=== PATIENT | female | born 1985 | race Two or more races ===

== ENCOUNTER 2024-04-25 20:00 | Emergency (ER) | payer OTHER ==
[2024-04-25 20:31] VITALS: BP 127/83; PULSE 93; RESP 18; TEMP 98.4; BMI 22.3
[2024-04-25] MEDS ORDERED: ACETAMINOPHEN WITH CODEINE 300MG/30MG TABLET ONE (21:30)
[2024-04-25] MEDS: ACETAMINOPHEN WITH CODEINE 300MG/30MG TABLET PO ONE (21:31)
[2024-04-25] MEDS ORDERED: LIDOCAINE 2.5%/PRILOCAINE 2.5% (5 Gram/TUBE) TP ONE (22:46)
[2024-04-25] MEDS: LIDOCAINE 2.5%/PRILOCAINE 2.5% (5 Gram/TUBE) TP ONE (22:59)
[2024-04-25] MEDS ORDERED: IBUPROFEN 600 MG TABLET (FP) PO ONE (23:20)
[2024-04-25] MEDS: IBUPROFEN 600 MG TABLET (FP) PO ONE (23:22)
[2024-04-26] MEDS ORDERED: LIDOCAINE HCL 1%, 10 MG/ML (20ML VIAL) ONE (00:23)
[2024-04-26] MEDS: LIDOCAINE HCL 1%, 10 MG/ML (50 mL VIAL) SQ ONE (00:28)
== END 2024-04-26 00:52 | disposition home or self-care (01) ==
LOC: JER 20:00
PROC: 0U9MX0Z Drainage of Vulva with Drainage Device, External Approach (ICD-10-PCS; principal; 2024-04-25)
PROC: 3E02329 Introduction of Other Anti-infective into Muscle, Percutaneous Approach (ICD-10-PCS; 2024-04-25)
DX: N75.1 Abscess of Bartholin's gland (principal)
CPT/HCPCS: 36415; 87070; 87186; 87205; 87491; 87591; 87661; 99284-25